=== PATIENT | male | born 1985 | race Caucasian/White ===

== ENCOUNTER 2018-03-30 17:00 | Inpatient (IN) | payer OTHER ==
[2018-03-30 17:27] VITALS: BMI 24.7
--- NOTE | 2018-03-30 20:51 | HP ---
CIWA Score - CIWA Score Nausea/Vomitin-No Nausea/No Vomiting Muscle Tremors: 1-None Visible, but [place] Anxiety: 3 Agitation: 3 Paroxysmal Sweats: 2 Orientation: 0-Oriented Tacttile Disturbances: 0-None Auditory Disturbances: 0-None Visual Disturbances: 0-None Headache: 3-Moderate CIWA-Ar Total Score: 12 Admission ROS S - HPI Chief Complaint: alcohol withdrawal symptoms Allergies/Adverse Reactions: Allergies Allergy/AdvReac Type Severity Reaction Status Date / Time No Known Allergies Allergy Unverified 03/30/18 20:44 History of Present Illness: 32 yo male with hx of nicotine, marijuana, IV heroin, xanax, fentanyl, cocaine dependence, is here seeking detox for the first time. Reports no prior admissions any detox facility. [facility] tx for facial fx and opioid overdoes on 03/19/18. Reports OD x3. MMTP: [facility], on methadone 30 mg , last medicated today. PMHX: right hip replacement, DMII ( Oral meds), depression. Denies hx of seizures or blackouts. Longest period of sobriety 2 years. . Exam Limitations: No Limitations - Ebola screening Have you been sick,other than usual withdrawal symptoms: No - Review of Systems Constitutional: Chills, Diaphoresis, Loss of Appetite, Changes in sleep ( reports no sleep x 7 days), Weakness, Unintentional Wgt. Loss (20 lbs over a month) EENT: reports: Blurred Vision, Other (hx nose fx on 03/19/18) Respiratory: reports: SOB with Exertion Cardiac: reports: Lightheadedness GI: reports: No Symptoms Reported : reports: No Symptoms Reported Musculoskeletal: reports: See HPI Integumentary: reports: No Symptoms Reported Neuro: reports: Headache, Weakness Endocrine: reports: No Symptoms Reported Hematology: reports: No Symptoms Reported Psychiatric: reports: Orientated x3, Anxious Other Systems: Reviewed and Negative Patient History - Patient Medical History Hx Anemia: No Hx Asthma: No Hx Chronic Obstructive Pulmonary Disease (COPD): No Hx Cardiac Disorders: No Hx Congestive Heart Failure: No Hx Hypertension: No Hx Hypercholesterolemia: No Hx Pacemaker: No HX Cerebrovascular Accident: No Hx Seizures: No Hx Dementia: No Hx Diabetes: Yes (on Metformin) Hx Gastrointestinal Disorders: No Hx Liver Disease: No Hx Genitourinary Disorders: No Hx Sexually Transmitted Disorders: No Hx Renal Disease (ESRD): No Hx Thyroid Disease: No Hx Human Immunodeficiency Virus (HIV): No Hx Hepatitis C: No Hx Depression: Yes Hx Suicide Attempt: No Hx Bipolar Disorder: No Hx Schizophrenia: No - Patient Surgical History Past Surgical History: Yes Hx Neurologic Surgery: No Hx Cataract Extraction: No Hx Cardiac Surgery: No Hx Lung Surgery: No Hx Breast Surgery: No Hx Breast Biopsy: No Hx Abdominal Surgery: No Hx Appendectomy: No Hx Cholecystectomy: No Hx Genitourinary Surgery: No Hx Orthopedic Surgery: Yes (Right Hip Replacement 2003) Anesthesia Reaction: No - PPD History Previous Implant?: No Documented Results: Negative w/o proof PPD to be Administered?: Yes - Smoking Cessation Smoking history: Current every day smoker Have you smoked in the past 12 months: Yes Aproximately how many cigarettes per day: 4 Hx Chewing Tobacco Use: No Initiated information on smoking cessation: Yes 'Breaking Loose' booklet given: 03/30/18 - Substance & Tx. History Hx Alcohol Use: Yes Substance Use Type: Alcohol, Cocaine, Heroin, Marijuana, Opiates, Tranquilizers Hx Substance Use Treatment: No - Substances Abused Heroin Route: SNIFF Frequency: Daily Amount used: 9 BAGS Age of first use: 28 Date of Last Use: 03/30/18 Alprazolam (Xanax) Route: Oral Frequency: Daily Amount used: 4/2MG Age of first use: 26 Date of Last Use: 03/30/18 Alcohol Route: Oral Frequency: Daily Amount used: 2 pints E&J, Vodka Age of first use: 17 Date of Last Use: 03/29/18 Family Disease History - Family Disease History Family Disease History: Other: Father (alive, heroin dep ), Mother (alive, heroin dep ) Admission Physical Exam S - Vital Signs Vital Signs: Vital Signs - 24 hr 03/30/18 17:24 Temperature 97.7 F Pulse Rate 66 Respiratory 18 Rate Blood Pressure 133/91 - Physical General Appearance: Yes: Disheveled, Mild Distress, Thin, Anxious HEENTM: Yes: EOMI, Hearing grossly Normal, Normal ENT Inspection, Normocephalic , Normal Voice, TOM, Pharynx Normal, Tm's normal Respiratory: Yes: Chest Non-Tender, Lungs Clear, Normal Breath Sounds, No Respiratory Distress, No Accessory Muscle Use Neck: Yes: Within Normal Limits Breast: Yes: Breast Exam Deferred Cardiology: Yes: Regular Rhythm, Regular Rate Abdominal: Yes: Normal Bowel Sounds, Non Tender, Flat, Soft Genitourinary: Yes: Within Normal Limits Back: Yes: Normal Inspection Musculoskeletal: Yes: full range of Motion, Gait Steady, Pelvis Stable Extremities: Yes: Normal Capillary Refill, Normal Inspection, Normal Range of Motion, Non-Tender Neurological: Yes: alarm mechanism adjuster II-XII NML intact, Fully Oriented, Alert, Motor Strength 5/5, Depressed Affect Integumentary: Yes: Normal Color, Warm, Diaphoresis, Track Garza (bilateral forearms) Lymphatic: Yes: Within Normal Limits - Diagnostic (1) Alcohol dependence with withdrawal Current Visit: Yes Status: Acute (2) IV drug user Current Visit: Yes Status: Chronic (3) Opioid dependence on agonist therapy Current Visit: Yes Status: Acute Comment: on methadone 30 mg qd, dose pending verification (4) Cocaine dependence Current Visit: Yes Status: Acute Qualifiers: Substance use status: uncomplicated Qualified Code(s): F14.20 - Cocaine dependence, uncomplicated (5) Sedative, hypnotic or anxiolytic dependence, continuous Current Visit: Yes Status: Acute (6) Marijuana dependence Current Visit: Yes Status: Acute (7) Nicotine dependence Current Visit: Yes Status: Acute Qualifiers: Nicotine product type: cigarettes Substance use status: in withdrawal Qualified Code(s): F17.213 - Nicotine dependence, cigarettes, with withdrawal (8) Diabetes mellitus Current Visit: Yes Status: Chronic Qualifiers: Diabetes mellitus type: type 2 Diabetes mellitus half-way insulin use: without half-way use Diabetes mellitus complication status: without complication Qualified Code(s): E11.9 - Type 2 diabetes mellitus without complications Cleared for Admission S - Detox or Rehab [facility] Level of Care: Medically Managed Detox Regimen/Protocol: Librium [facility] Breath Alcohol Content Breath Alcohol Content: 0 Urine Drug Screen - Results Drug Screen Negative: No Urine Drug Screen Results: THC-Marijuana, TERRY-Cocaine, OPI-Opiates, MTD- Methadone
[2018-03-30] MEDS ORDERED: chlordiazePOXIDE HCL 25 MG CAPSULE PO PRN (21:03)
[2018-03-30] MEDS ORDERED: IBUPROFEN 400 MG TABLET (FP) PO PRN (21:03)
[2018-03-30] MEDS ORDERED: MAGNESIUM CITRATE 300 ML BOTTLE PO PRN (21:03)
[2018-03-30] MEDS ORDERED: hydrOXYzine PAMOATE 50 MG CAPSULE (FP) PO PRN (21:03)
[2018-03-30] MEDS ORDERED: LOPERAMIDE HCL 2 MG CAPSULE PO PRN (21:03)
[2018-03-30] MEDS ORDERED: ACETAMINOPHEN 325 MG TABLET (FP) PO PRN (21:03)
[2018-03-30] MEDS ORDERED: MAGNESIUM HYDROX 2400MG/30ML ORAL SUSPENSION 30 ML CUP PO PRN (21:03)
[2018-03-30] MEDS ORDERED: MENTHOL/PHENOL 1 EACH UD MM PRN (21:03)
[2018-03-30] MEDS ORDERED: NICOTINE POLACRILEX 2 MG GUM BUC PRN (21:03)
[2018-03-30] MEDS ORDERED: MAG HYDROX/AL HYDROX/SIMETH 30 ML UNIT-DOSE CUP PO PRN (21:03)
[2018-03-30] MEDS ORDERED: guaiFENesin/D-METHORPHAN HB 10 ML UNIT-DOSE CUPS PO PRN (21:03)
[2018-03-30] MEDS ORDERED: P-EPHED 60MG/TRIPROLIDI 2.5MG TABLET PO PRN (21:03)
[2018-03-30] MEDS ORDERED: MELATONIN 5 MG TABLETS PO PRN (22:00)
[2018-03-30] MEDS: chlordiazePOXIDE HCL 25 MG CAPSULE PO SCH (23:37)
[2018-03-30] MEDS: THIAMINE HCL 100 MG TABLET (FP) PO SCH (23:41)
[2018-03-31] MEDS: chlordiazePOXIDE HCL 25 MG CAPSULE PO SCH ×4 (05:21→22:39)
--- NOTE | 2018-03-31 07:48 | CONSULT ---
[facility] Psychiatric Consult - Data Date of interview: 03/31/18 Admission source: [facility] Identifying data: This is 32 years old male, single father of two, unemployed, homeless, on PA, with no psychiatric hospitalization history, with a history of Alcohol, Xanax, Heroin, Cannabis and Nicotine dependence, is here reporting withdrawal symptoms and seeking for detox. Patient is seeking for detox for the first time. Reports no prior admissions to any detox facility. Substance Abuse History: Smoking history: Current every day smoker. Have you smoked in the past 12 months: Yes. Aproximately how many cigarettes per day: 4. Hx Chewing Tobacco Use: No. Initiated information on smoking cessation: Yes. 'Breaking Loose' booklet given: 03/30/18. - Substance & Tx. History. Hx Alcohol Use: Yes. Substance Use Type: Alcohol, Cocaine, Heroin, Marijuana, Opiates, Tranquilizers. Hx Substance Use Treatment: No. - Substances Abused. Heroin. Route: SNIFF. Frequency: Daily. Amount used: 9 BAGS. Age of first use: 28. Date of Last Use: 03/30/18. Alprazolam (Xanax). Route: Oral. Frequency: Daily. Amount used: 4/2MG. Age of first use: 26. Date of Last Use: 03/30/18. Alcohol. Route: Oral. Frequency: Daily. Amount used: 2 pints E&J, Vodka. Age of first use: 17. Date of Last Use: 03/29/18 Medical History: DM, S/P Hip replacement, MMTP 30mg per day Psychiatric History: Patient reports history of depression and anxiety, denies psychiatric hospitalization history, reports no medications taking prior to admission. Physical/Sexual Abuse/Trauma History: Denies Additional Comment: Observation. Detox Unit Care Protocol Mental Status Exam - Mental Status Exam Alert and Oriented to: Person Cognitive Function: Fair Patient Appearance: Unkempt Mood: Sad Affect: Flat Patient Behavior: Sedated Speech Pattern: Delayed Voice Loudness: Mildly Soft/Quiet Thought Process: Circumstantial Thought Disorder: Being Controlled Hallucinations: Denies Suicidal Ideation: Denies Homicidal Ideation: Denies Insight/Judgement: Fair Sleep: Difficulty falling asleep Appetite: Fair Muscle strength/Tone: Mild Hypotonicity Gait/Station: Shuffling Additional Comments: Observation. Detox Unit Care Protocol Psychiatric Findings - Problem List ([place] 1, 2,3) (1) Drug-induced mood disorder Current Visit: Yes Status: Suspected (2) Alcohol dependence with withdrawal Current Visit: Yes Status: Acute (3) Cocaine dependence Current Visit: Yes Status: Acute Qualifiers: Substance use status: uncomplicated Qualified Code(s): F14.20 - Cocaine dependence, uncomplicated (4) Marijuana dependence Current Visit: Yes Status: Acute (5) Nicotine dependence Current Visit: Yes Status: Acute Qualifiers: Nicotine product type: cigarettes Substance use status: in withdrawal Qualified Code(s): F17.213 - Nicotine dependence, cigarettes, with withdrawal (6) Opioid dependence on agonist therapy Current Visit: Yes Status: Acute Comment: on methadone 30 mg qd, dose pending verification (7) Sedative, hypnotic or anxiolytic dependence, continuous Current Visit: Yes Status: Acute - Initial Treatment Plan Initial Treatment Plan: Observation. Detox Unit Care Protocol
[2018-03-31] MEDS: metFORMIN HCL 500 MG TABLET (FP) PO SCH (08:00)
--- NOTE | 2018-03-31 09:09 | PN ---
S CIWA - CIWA Score Nausea/Vomitin Muscle Tremors: 3 Anxiety: 2 Agitation: 2 Paroxysmal Sweats: 1-Minimal Palms Moist Orientation: 0-Oriented Tacttile Disturbances: 1-Very Mild Itch/Numbness Auditory Disturbances: 1-Very Mild Visual Disturbances: 0-None Headache: 2-Mild CIWA-Ar Total Score: 15 BHS Progress Note (SOAP) Subjective: alert,irritable,anxious,interrupted sleep,tremor Objective: 03/31/18 09:04 Vital Signs Temperature 97.9 F 03/31/18 07:16 Pulse Rate 55 L 03/31/18 07:16 Respiratory Rate 16 03/31/18 07:16 Blood Pressure 119/79 03/31/18 07:16 O2 Sat by Pulse Oximetry (%) ekg sinus bradycardia 59/min qt 390/386 no chest pain,no sob,no dizziness 03/31/18 09:06 Laboratory Last Values POC Glucometer 101 UNITS (80-120) 03/31/18 05:24 labs pending Assessment: 03/31/18 09:06 withdrawal symptom Plan: continue detox
[2018-03-31] MEDS: BACITRACIN 0.9 GM PACKET TP SCH (09:47)
[2018-03-31] MEDS: PRENATAL VITAMINS W/ FOLIC ACID TABLET (FP) PO SCH (09:47)
[2018-03-31] MEDS: METHADONE HCL 10 MG TABLET PO SCH (09:47)
[2018-03-31] MEDS: NICOTINE 14 MG/24 HOURS TOPICAL PATCH TD SCH (09:49)
[2018-03-31 10:04] LABS: HEMATOCRIT 37.1 % (35.4-49); HEMOGLOBIN 12.3 GM/dL (11.7-16.9); MCH 29.5 pg (25.7-33.7); MCHC 33.2 g/dl (32.0-35.9); MEAN PLT VOLUME 8.3 fl (7.5-11.1); PLATELET COUNT 248 K/MM3 (134-434); RBC 4.17 M/mm3 (4.00-5.60); RDW 12.8 % (11.9-15.9); WHITE BLOOD COUNT 6.3 K/mm3 (4.0-10.0)
[2018-03-31 10:38] LABS: CHLORIDE 107 mmol/L (98-107); POTASSIUM 4.1 mmol/L (3.5-5.1); SODIUM 144 mmol/L (136-145)
[2018-03-31 11:12] LABS: ALBUMIN 3.1 g/dl (3.4-5.0); ALK PHOS 60 U/L (45-117); ANION GAP 10 (8-16); BILIRUBIN,TOTAL 0.2 mg/dL (0.2-1.0); BLOOD UREA NITROGEN 12 mg/dL (7-18); CALCIUM 8.2 mg/dL (8.5-10.1); CO2 27 mmol/L (21-32); CREATININE 0.8 mg/dL (0.7-1.3); GLUCOSE,RANDOM 80 mg/dL (74-106); SGOT/AST 39 U/L (15-37); SGPT/ALT 44 U/L (12-78); TOT PROT 6.1 g/dl (6.4-8.2)
--- NOTE | 2018-03-31 12:10 | EKG ---
Test Reason : Blood Pressure : / mmHG Vent. Rate : 059 BPM Atrial Rate : 059 BPM P-R Int : 170 ms QRS Dur : 086 ms QT Int : 390 ms P-R-T Axes : 065 082 060 degrees QTc Int : 386 ms SINUS BRADYCARDIA POSSIBLE LEFT ATRIAL ENLARGEMENT BORDERLINE ECG NO PREVIOUS ECGS AVAILABLE Confirmed by CARMITA PAREDES, LUCIA ([id number]) on 03/31/2018 12:10:44 PM Referred By: Confirmed By:LUCIA VIZCARRA MD
[2018-03-31 16:30] LABS: URINE APPEARANCE CLEAR; URINE BILIRUBIN NEGATIVE (<2.0 mg/dL); URINE COLOR STRAW; URINE GLUCOSE (UA) NEGATIVE (NEGATIVE); URINE KETONE NEGATIVE (NEGATIVE); URINE LEUK ESTERASE NEGATIVE (NEGATIVE); URINE NITRITE NEGATIVE (NEGATIVE); URINE PROTEIN NEGATIVE (NEGATIVE); URINE UROBILINOGEN NEGATIVE mg/dL (0.2-1.0)
[2018-03-31] MEDS: THIAMINE HCL 100 MG TABLET (FP) PO SCH (22:39)
[2018-04-01] MEDS: METHADONE HCL 10 MG TABLET PO SCH (05:36)
[2018-04-01] MEDS: chlordiazePOXIDE HCL 25 MG CAPSULE PO SCH ×3 (05:36→17:41)
[2018-04-01] MEDS: metFORMIN HCL 500 MG TABLET (FP) PO SCH (08:00)
--- NOTE | 2018-04-01 08:53 | PN ---
S CIWA - CIWA Score Nausea/Vomitin Muscle Tremors: 3 Anxiety: 2 Agitation: 2 Paroxysmal Sweats: 1-Minimal Palms Moist Orientation: 0-Oriented Tacttile Disturbances: 1-Very Mild Itch/Numbness Auditory Disturbances: 1-Very Mild Visual Disturbances: 0-None Headache: 2-Mild CIWA-Ar Total Score: 15 S Progress Note (SOAP) Subjective: alert,irritable,anxious,interrupted sleep,tremor Objective: 04/01/18 08:51 Vital Signs Temperature 97.7 F 04/01/18 07:24 Pulse Rate 64 04/01/18 07:24 Respiratory Rate 18 04/01/18 07:24 Blood Pressure 122/80 04/01/18 07:24 O2 Sat by Pulse Oximetry (%) 04/01/18 08:51 withdrawal symptom Laboratory Last Values WBC 6.3 K/mm3 (4.0-10.0) 03/31/18 07:00 RBC 4.17 M/mm3 (4.00-5.60) 03/31/18 07:00 Hgb 12.3 GM/dL (11.7-16.9) 03/31/18 07:00 Hct 37.1 % (35.4-49) 03/31/18 07:00 MCV 89.0 fl (80-96) 03/31/18 07:00 MCH 29.5 pg (25.7-33.7) 03/31/18 07:00 MCHC 33.2 g/dl (32.0-35.9) 03/31/18 07:00 RDW 12.8 % (11.9-15.9) 03/31/18 07:00 Plt Count 248 K/MM3 (134-434) 03/31/18 07:00 MPV 8.3 fl (7.5-11.1) 03/31/18 07:00 Sodium 144 mmol/L (136-145) 03/31/18 07:00 Potassium 4.1 mmol/L (3.5-5.1) 03/31/18 07:00 Chloride 107 mmol/L (98-107) 03/31/18 07:00 Carbon Dioxide 27 mmol/L (21-32) 03/31/18 07:00 Anion Gap 10 (8-16) 03/31/18 07:00 BUN 12 mg/dL (7-18) 03/31/18 07:00 Creatinine 0.8 mg/dL (0.7-1.3) 03/31/18 07:00 Creat Clearance w eGFR > 60 (>60) 03/31/18 07:00 POC Glucometer 103 UNITS (80-120) 04/01/18 05:35 Random Glucose 80 mg/dL (74-106) 03/31/18 07:00 Calcium 8.2 mg/dL (8.5-10.1) L 03/31/18 07:00 Total Bilirubin 0.2 mg/dL (0.2-1.0) 03/31/18 07:00 AST 39 U/L (15-37) H 03/31/18 07:00 ALT 44 U/L (12-78) 03/31/18 07:00 Alkaline Phosphatase 60 U/L (45-117) 03/31/18 07:00 Total Protein 6.1 g/dl (6.4-8.2) L 03/31/18 07:00 Albumin 3.1 g/dl (3.4-5.0) L 03/31/18 07:00 Urine Color Straw 03/31/18 09:50 Urine Appearance Clear 03/31/18 09:50 Urine pH 7.0 (5.0-8.0) 03/31/18 09:50 Ur Specific [place] 1.008 (1.001-1.035) 03/31/18 09:50 Urine Protein Negative (NEGATIVE) 03/31/18 09:50 Urine Glucose (UA) Negative (NEGATIVE) 03/31/18 09:50 Urine Ketones Negative (NEGATIVE) 03/31/18 09:50 Urine Blood Negative (NEGATIVE) 03/31/18 09:50 Urine Nitrite Negative (NEGATIVE) 03/31/18 09:50 Urine Bilirubin Negative (<2.0 mg/dL) 03/31/18 09:50 Urine Urobilinogen Negative mg/dL (0.2-1.0) 03/31/18 09:50 Ur Leukocyte Esterase Negative (NEGATIVE) 03/31/18 09:50 RPR Titer Nonreactive (NONREACTIVE) 03/31/18 07:00 HIV 1&2 Antibody Screen Negative 03/31/18 07:00 HIV P24 Antigen Negative 03/31/18 07:00 04/01/18 08:52 bgm 103 Assessment: 04/01/18 08:52 withdrawal symptom Plan: continue detox
[2018-04-01] MEDS: PRENATAL VITAMINS W/ FOLIC ACID TABLET (FP) PO SCH (10:09)
[2018-04-01] MEDS: NICOTINE 14 MG/24 HOURS TOPICAL PATCH TD SCH (10:09)
[2018-04-01] MEDS: BACITRACIN 0.9 GM PACKET TP SCH (10:09)
[2018-04-01] MEDS: chlordiazePOXIDE 5 MG CAPSULE PO SCH (23:37)
[2018-04-01] MEDS: THIAMINE HCL 100 MG TABLET (FP) PO SCH (23:42)
[2018-04-02] MEDS: chlordiazePOXIDE 5 MG CAPSULE PO SCH ×2 (05:58→10:10)
[2018-04-02] MEDS: METHADONE HCL 10 MG TABLET PO SCH (06:03)
[2018-04-02] MEDS: metFORMIN HCL 500 MG TABLET (FP) PO SCH (06:54)
[2018-04-02] MEDS: BACITRACIN 0.9 GM PACKET TP SCH (10:10)
[2018-04-02] MEDS: PRENATAL VITAMINS W/ FOLIC ACID TABLET (FP) PO SCH (10:10)
[2018-04-02] MEDS: NICOTINE 14 MG/24 HOURS TOPICAL PATCH TD SCH (10:12)
[2018-04-02 15:08] VITALS: BP 128/66; PULSE 83; TEMP 96.4
--- NOTE | 2018-04-02 15:20 | PN ---
BHS Progress Note (SOAP) Subjective: sleep disturbance shakes sweats Objective: 04/02/18 15:19 A & O x 3 Ambulating on unit in no distress Restless Vital Signs Temperature 96.4 F L 04/02/18 15:07 Pulse Rate 83 04/02/18 15:07 Respiratory Rate 18 04/02/18 15:07 Blood Pressure 128/66 04/02/18 15:07 O2 Sat by Pulse Oximetry (%) Assessment: 04/02/18 15:19 withdrawal sx Plan: continue detox
--- NOTE | 2018-04-02 16:28 | PN ---
[facility] Progress Note Note: Told by RN that pt had an unwitnessed fall. At bedside to evaluate pt, pt A & O x 3, ambulates with a limp which is his usual since his R hip replacement in 2003. No abrasions nor deformity noted. Denies hitting head nor any other part but the R knee. Evi nelson offered Decline ED visit for evaluation of unwitnessed fall
--- NOTE | 2018-04-02 16:34 | DS ---
[facility] Detox Discharge Summary Admission Date: 03/30/18 Discharge Date: 04/02/18 - History Additional Comments: pt came up to nursing desk after provider had seen him to states that he wants to leave the unit. Did not give reason, stating omly "i just want to leave". Not hostile nor agitated but declining advise for him to complete detox. Appears pt will be leaving in the company of 3 other pts who also want to leave. Pt A & O x 3, not in acute distress and does not show adverse withdrawal symptoms at this time. Pt will leave AMA <Metformin sent to [facility] to shredder picker, pt made aware. Pertinent Past History: DM 2 MMTP - Physical Exam Results Vital Signs: Vital Signs Temperature 96.4 F L 04/02/18 15:07 Pulse Rate 83 04/02/18 15:07 Respiratory Rate 18 04/02/18 15:07 Blood Pressure 128/66 04/02/18 15:07 O2 Sat by Pulse Oximetry (%) Pertinent Admission Physical Exam Findings: withdrawal sx - Medication Discharge Medications: Ambulatory Orders Metformin HCl [Glucophage] 500 mg PO DAILY 03/30/18 - Diagnosis (1) Alcohol dependence with withdrawal Current Visit: Yes Status: Acute (2) Cocaine dependence Current Visit: Yes Status: Chronic Qualifiers: Substance use status: uncomplicated Qualified Code(s): F14.20 - Cocaine dependence, uncomplicated (3) Marijuana dependence Current Visit: Yes Status: Chronic (4) Nicotine dependence Current Visit: Yes Status: Acute Qualifiers: Nicotine product type: cigarettes Substance use status: in withdrawal Qualified Code(s): F17.213 - Nicotine dependence, cigarettes, with withdrawal (5) Opioid dependence on agonist therapy Current Visit: Yes Status: Chronic (6) Sedative, hypnotic or anxiolytic dependence, continuous Current Visit: Yes Status: Acute (7) Diabetes mellitus Current Visit: Yes Status: Chronic Qualifiers: Diabetes mellitus type: type 2 Diabetes mellitus terminal superintendent insulin use: without terminal superintendent use Diabetes mellitus complication status: without complication Qualified Code(s): E11.9 - Type 2 diabetes mellitus without complications (8) IV drug user Current Visit: Yes Status: Chronic (9) Drug-induced mood disorder Current Visit: Yes Status: Suspected - AMA Did Patient Leave Against Medical Advice: Yes
[2018-04-02] MEDS ORDERED: chlordiazePOXIDE HCL 10 MG CAPSULE PO SCH (23:00)
== END 2018-04-02 16:30 | disposition left against medical advice (07) | DRG 770 ==
LOC: YASAS 17:00 → Y6N 21:56
PROVIDERS: ADMIT Surgery; ATTEND Surgery
PROC: HZ2ZZZZ Detoxification Services for Substance Abuse Treatment (ICD-10-PCS; principal; 2018-03-30)
DX: F11.20 Opioid dependence, uncomplicated (principal); F13.230 Sedative, hypnotic or anxiolytic dependence with withdrawal, uncomplicated; F10.230 Alcohol dependence with withdrawal, uncomplicated; F14.20 Cocaine dependence, uncomplicated; F12.20 Cannabis dependence, uncomplicated; F17.213 Nicotine dependence, cigarettes, with withdrawal; F19.24 Other psychoactive substance dependence with psychoactive substance-induced mood disorder; F32.9 Major depressive disorder, single episode, unspecified; E11.9 Type 2 diabetes mellitus without complications; Z79.84 Long term (current) use of oral hypoglycemic drugs
CPT/HCPCS: 36415; 80053; 81003; 82962; 85027; 86593; 87389; 93005; 93010